=== PATIENT | male | born 1960 | race Hispanic/Latino ===

== ENCOUNTER 2020-01-06 13:12 | Emergency (ER) | payer SELFPAY ==
--- NOTE | 2020-01-06 14:51 | RAD ---
RIGHT HAND THREE VIEWS: 01/06/20 HISTORY: Injury, right hand pain. FINDINGS/IMPRESSION: There is a mildly angulated comminuted fracture involving the base of the fifth metacarpal. POS: OFF
== END 2020-01-06 15:10 | disposition home or self-care (01) ==
LOC: NAV ERS 13:12
DX: S62.316A Displaced fracture of base of fifth metacarpal bone, right hand, initial encounter for closed fracture (principal); E11.9 Type 2 diabetes mellitus without complications; E78.5 Hyperlipidemia, unspecified; I10 Essential (primary) hypertension; I25.2 Old myocardial infarction; F32.9 Major depressive disorder, single episode, unspecified; J45.909 Unspecified asthma, uncomplicated; Z87.891 Personal history of nicotine dependence; Z79.4 Long term (current) use of insulin; W22.8XXA Striking against or struck by other objects, initial encounter
CPT/HCPCS: 29125